=== PATIENT | female | born 1985 | race African-American/Black ===

== ENCOUNTER 2017-01-30 14:47 | Emergency (ER) | payer BC ==
[~2017-01-30] VITALS: Ht 165.1 cm; Wt 80.3 kg
[2017-01-30] MEDS ORDERED: NKM (15:01)
[2017-01-30 15:05] VITALS: BP 108/63
--- NOTE | 2017-01-30 15:10 | Emergency Room Report ---
History of Present Illness General Chief Complaint: Asthma Source: Patient Present Illness HPI The patient is a 31-year-old female with a history of asthma presenting for a feeling of shortness of breath. The patient states that she ran out of her albuterol 2 days prior and has not been able to see primary doctor. She also admits to a productive cough with yellow sputum. She denies any pain and denies fever or chills. Shortness of breath is worse with activity. She denies waking up from sleep with shortness of breath. She denies any other symptoms Allergies: Coded Allergies: No Known Allergies (Unverified , 01/30/17) Patient History Past Medical History: see triage record Pertinent Family History: none Last Menstrual Period: 01/04/17 Now: No : 0 Para: 0 Reviewed Nursing Documentation: PMH: Agreed, PSxH: Agreed Nursing Documentation-PMH Past Medical History: No History, Except For Hx Asthma: Yes Review of Systems All Other Systems: negative except mentioned in HPI Physical Exam Vital Signs Date Time Temp Pulse Resp B/P Pulse Ox O2 Delivery O2 Flow Rate FiO2 01/30/17 14:58 99.3 93 22 117/69 100 Room Air Sp02 EP Interpretation: reviewed, normal General Appearance: no apparent distress, alert, GCS 15, non-toxic Head: normocephalic, atraumatic Eyes: bilateral eye PERRL, bilateral eye normal inspection ENT: hearing grossly normal, normal pharynx, no angioedema, normal voice Neck: full range of motion, supple/symm/no masses Respiratory: normal inspection, chest non-tender, no respiratory distress, no retraction, no accessory muscle use, decreased breath sounds Cardiovascular #1: regular rate, rhythm, no edema Gastrointestinal: normal bowel sounds, non tender, soft, non-distended, no guarding, no rebound Genitourinary: normal inspection, no CVA tenderness Musculoskeletal: back normal, gait/station normal, normal range of motion, non- tender, calf tenderness Neurologic: alert, oriented x3, responsive, motor strength/tone normal, sensory intact, speech normal Psychiatric: judgement/insight normal, memory normal, mood/affect normal, no suicidal/homicidal ideation Skin: normal color, no rash, warm/dry, well hydrated Lymphatic: no adenopathy Medical Decision Making PA Attestation Dr. Navas is my supervising physician. Patient management was discussed with my supervising physician Diagnostic Impression: Primary Impression: Asthma attack ER Course The patient is a 31-year-old female with a history of asthma presenting for a feeling of shortness of breath. Differential diagnoses considered but not limited to: Asthma exacerbation, bronchitis, pneumonia, anxiety Physical exam: Afebrile. Apparent distress HEENT exam is unremarkable. Lungs: Decreased breath sounds bilaterally. No wheezing. No respiratory distress The patient is given a breathing treatment in the emergency department and feels better. Oxygen saturation 100% on room air She'll be discharged home with a refill of albuterol and needs to followup with primary doctor. ER precautions given Last Vital Signs Date Time Temp Pulse Resp B/P Pulse Ox O2 Delivery O2 Flow Rate FiO2 01/30/17 14:58 99.3 93 22 117/69 100 Room Air Status: improved Disposition: HOME, SELF-CARE Condition: Improved Scripts Albuterol Sulfate* (PROAIR HFA*) 8.5 Gm Hfa.aer.ad 2 PUFFS INH Q6H, #8.5 GM 0 Refills Prov: JEFF MAHER 01/30/17 JEFF MAHER Jan 30, 2017 15:10
[2017-01-30] MEDS ORDERED: Ipratropium 0.02% Inh Soln 2.5ml UD HHN ONE (15:15)
[2017-01-30] MEDS ORDERED: Albuterol ud Inhalation HHN ONE (15:15)
[2017-01-30] MEDS ORDERED: PROAIR HFA8.5 GM INH (15:54)
[2017-01-30 16:04] VITALS: BP 111/66
== END 2017-01-30 16:06 | disposition home or self-care (01) ==
LOC: EDBD 14:47 → EMR 15:05
DX: J45.901 Unspecified asthma with (acute) exacerbation (principal); R05 Cough
CPT/HCPCS: 94640; 99283

== ENCOUNTER 2017-02-10 10:50 | Emergency (ER) | payer BC ==
[~2017-02-10] VITALS: Ht 165.1 cm; Wt 79.4 kg
[~2017-02-10 10:50] MED LIST: NKM; PROAIR HFA8.5 GM INH
[2017-02-10 11:03] VITALS: BP 117/69
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
[2017-02-10 15:08] VITALS: BP 117/69
== END 2017-02-10 12:35 | disposition left against medical advice (07) ==
LOC: EMR 11:35
DX: J06.9 Acute upper respiratory infection, unspecified (principal); J45.909 Unspecified asthma, uncomplicated
CPT/HCPCS: 99282